=== PATIENT | female | born 1975 | race Caucasian/White ===

== ENCOUNTER 2017-05-20 16:53 | Emergency (ER) | payer MEDICAID ==
[~2017-05-20] VITALS: Ht 154.9 cm; Wt 56.1 kg
[~2017-05-20 16:53] MED LIST: ACET-896 PO; ALB0.5UD IH; ALBU8.5H8 INH; MONT4TAB9 PO; PROP120C2 PO; SULF1TAB49 PO
[2017-05-20 17:44] LABS: CLARITY,URINE CLEAR (Clear); COLOR,URINE STRAW (Yellow); GLUCOSE, URINE NEGATIVE (Neg); KETONES,URINE NEGATIVE (Neg); LEUKOCYTE ESTERASE ,URINE NEGATIVE (Neg); NITRITES, URINE NEGATIVE (Neg); OCCULT BLOOD,URINE MODERATE (Neg); PROTEIN,URINE NEGATIVE (Neg); UROBILINOGEN,URINE 0.2 E.U/dL (0.2-1.0)
[2017-05-20 17:45] LABS: UA COLLECTION TYPE CLN CATCH MIDSTREAM; URINE HCG NEGATIVE (NEG)
[2017-05-20 17:51] LABS: BACTERIA,URINE NONE SEEN /HPF (Neg); MUCUS STRANDS NONE SEEN /LPF (Neg); RBC,URINE 0-2 /HPF (0-2); SQUAMOUS EPITHELIAL CELL,UR FEW /LPF (FEW); WBC,URINE NONE SEEN /HPF (0-4)
[2017-05-20 18:10] LABS: BASOPHILS % (AUTO) 0.3 % (0-1); EOSINOPHILS # (AUTO) 0.3 X10'3 (0-0.9); EOSINOPHILS % (AUTO) 2.6 % (0-6); HEMATOCRIT 42.7 % (35.0-45.0); HEMOGLOBIN 14.3 g/dl (12.0-16.0); LYMPHOCYTES # (AUTO) 1.7 X10'3 (1.1-4.8); LYMPHOCYTES % (AUTO) 16.6 % (21-51); MEAN CORPUSCULAR HEMOGLOBIN 28.1 PG (27.0-31.0); MEAN CORPUSCULAR HGB CONC 33.5 % (33.0-36.5); MEAN CORPUSCULAR VOLUME 83.9 FL (78-98); MEAN PLATELET VOLUME 7.3 FL (7.4-10.4); MONOCYTES # (AUTO) 0.6 X10'3 (0-0.9); MONOCYTES % (AUTO) 6.3 % (2-12); NEUTROPHILS # (AUTO) 7.5 X10'3 (1.8-7.7); NEUTROPHILS % (AUTO) 74.2 % (42-75); PLATELET COUNT 623 X10'3 (140-440); RED BLOOD COUNT 5.09 X10'6 (4.20-5.60); RED CELL DISTRIBUTION WIDTH 13.7 % (11.5-14.5); WHITE BLOOD COUNT 10.1 X10'3 (4.5-11.0)
[2017-05-20 18:15] LABS: INR 1.1 INR; PARTIAL THROMBOPLASTIN TIME 31 SECONDS (22-32); PROTHROMBIN TIME 11.4 SECONDS (9.0-12.0)
[2017-05-20] MEDS ORDERED: normal saline 1000ML IV soln IVB ONE (18:20)
[2017-05-20] MEDS ORDERED: cefazolin 1gm/NS 100mL 100 ML IV ONE (18:20)
[2017-05-20 18:21] LABS: ALANINE AMINOTRANSFERASE 41 U/L (12-78); ALBUMIN 3.8 G/DL (3.4-5.0); ALBUMIN/GLOBULIN RATIO 0.8 (1.1-1.5); ALKALINE PHOSPHATASE 123 IU/L (46-116); ANION GAP 13 (8-16); ASPARTATE AMINO TRANSFERASE 16 U/L (10-37); BILIRUBIN,TOTAL 0.3 MG/DL (0.1-1.0); BLOOD UREA NITROGEN 25 MG/DL (7-18); BUN/CREATININE RATIO 22.9 (6.6-38.0); CALCIUM 9.3 MG/DL (8.5-10.1); CHLORIDE 98 MMOL/L (99-107); CREATININE 1.09 MG/DL (0.40-0.90); GLUCOSE 117 MG/DL (70-104); MAGNESIUM 1.8 MG/DL (1.5-2.4); POTASSIUM 3.9 MMOL/L (3.5-5.1); SODIUM 135 MMOL/L (135-145); TOTAL CARBON DIOXIDE 23.8 MMOL/L (24-32); TOTAL PROTEIN 8.5 G/DL (6.4-8.2); eGFR 55 ML/MIN
[2017-05-20 20:30] VITALS: BP 138/85
== END 2017-05-20 20:31 | disposition home or self-care (01) ==
LOC: ER 16:54
DX: M65.9 Synovitis and tenosynovitis, unspecified (principal); I10 Essential (primary) hypertension
CPT/HCPCS: 36415; 71045; 73140; 80053; 81001; 81025; 83605; 83735; 84145; 85025; 85610; 85730; 87040; 96365; 96366; 99285; A6222; J0690; J7030

== ENCOUNTER 2017-06-06 10:01 | Outpatient (CLI) | payer MEDICAID ==
[2017-06-06 10:36] VITALS: BP 158/97
== END 2017-06-06 10:30 | disposition home or self-care (01) ==
LOC: ORTHO 10:01
PROVIDERS: ATTEND Nurse Practitioner Family
DX: L02.511 Cutaneous abscess of right hand (principal); I10 Essential (primary) hypertension; F14.90 Cocaine use, unspecified, uncomplicated; J45.909 Unspecified asthma, uncomplicated; Z59.0 Homelessness; Z56.0 Unemployment, unspecified; Z60.2 Problems related to living alone
CPT/HCPCS: 99213

== ENCOUNTER 2017-06-13 10:12 | Outpatient (CLI) | payer MEDICAID ==
[2017-06-13 10:12] VITALS: BP 160/97
== END 2017-06-13 11:00 | disposition home or self-care (01) ==
LOC: ORTHO 10:12
PROVIDERS: ATTEND Nurse Practitioner Family
DX: L02.511 Cutaneous abscess of right hand (principal); I10 Essential (primary) hypertension; J45.909 Unspecified asthma, uncomplicated; Z59.0 Homelessness; Z56.0 Unemployment, unspecified
CPT/HCPCS: 99212

== ENCOUNTER 2017-06-21 11:17 | Outpatient (CLI) | payer MEDICAID ==
[~2017-06-21 11:17] MED LIST changes: -SULF1TAB49 PO
[2017-06-21 11:20] VITALS: BP 141/84
== END 2017-06-21 11:45 | disposition home or self-care (01) ==
LOC: ORTHO 11:17
PROVIDERS: ATTEND Nurse Practitioner Family
DX: L02.511 Cutaneous abscess of right hand (principal); I10 Essential (primary) hypertension; J45.909 Unspecified asthma, uncomplicated; Z59.0 Homelessness; Z56.0 Unemployment, unspecified; Z60.2 Problems related to living alone
CPT/HCPCS: 99212

== ENCOUNTER 2017-06-28 09:10 | Day surgery (SDC) | payer MEDICAID ==
[2017-06-28] MEDS ORDERED: LIDOcaine 2% 5ml jelly ONE (10:54)
== END 2017-06-28 11:11 | disposition home or self-care (01) ==
LOC: WOUND CARE 09:10
PROVIDERS: ATTEND Surgery
DX: L98.491 Non-pressure chronic ulcer of skin of other sites limited to breakdown of skin (principal); I10 Essential (primary) hypertension; J45.909 Unspecified asthma, uncomplicated; F14.90 Cocaine use, unspecified, uncomplicated; F15.10 Other stimulant abuse, uncomplicated; Z79.899 Other long term (current) drug therapy
CPT/HCPCS: 11042; A6021; A6206

== ENCOUNTER 2017-07-05 09:02 | Day surgery (SDC) | payer MEDICAID ==
[2017-07-05] MEDS ORDERED: LIDOcaine 2% 5ml jelly ONE (10:09)
== END 2017-07-05 11:09 | disposition home or self-care (01) ==
LOC: WOUND CARE 09:02
PROVIDERS: ATTEND Surgery
DX: L98.491 Non-pressure chronic ulcer of skin of other sites limited to breakdown of skin (principal); I10 Essential (primary) hypertension; J45.909 Unspecified asthma, uncomplicated; F14.90 Cocaine use, unspecified, uncomplicated; F15.10 Other stimulant abuse, uncomplicated; Z79.899 Other long term (current) drug therapy
CPT/HCPCS: 97597; A6021; A6206; A6212

== ENCOUNTER 2017-07-12 10:09 | Day surgery (SDC) | payer MEDICAID ==
[2017-07-12] MEDS ORDERED: LIDOcaine 1%/PF (10mg/ml) 5ml vial ONE (10:39)
== END 2017-07-12 11:10 | disposition home or self-care (01) ==
LOC: WOUND CARE 10:09
PROVIDERS: ATTEND Surgery
DX: L98.492 Non-pressure chronic ulcer of skin of other sites with fat layer exposed (principal); I10 Essential (primary) hypertension; J45.909 Unspecified asthma, uncomplicated; F14.90 Cocaine use, unspecified, uncomplicated; F15.10 Other stimulant abuse, uncomplicated; F17.200 Nicotine dependence, unspecified, uncomplicated; Z79.899 Other long term (current) drug therapy
CPT/HCPCS: 11044; A6021; A6206; A6212; J2001

== ENCOUNTER 2017-07-19 09:02 | Day surgery (SDC) | payer MEDICAID ==
[2017-07-19] MEDS ORDERED: LIDOcaine 2% 5ml jelly ONE (10:18)
== END 2017-07-19 10:46 | disposition home or self-care (01) ==
LOC: WOUND CARE 09:02
PROVIDERS: ATTEND Surgery
DX: L98.492 Non-pressure chronic ulcer of skin of other sites with fat layer exposed (principal); I10 Essential (primary) hypertension; J45.909 Unspecified asthma, uncomplicated; F14.90 Cocaine use, unspecified, uncomplicated; F15.10 Other stimulant abuse, uncomplicated; F17.200 Nicotine dependence, unspecified, uncomplicated; Z79.899 Other long term (current) drug therapy
CPT/HCPCS: 11042; A6021; A6206

== ENCOUNTER 2017-07-26 08:59 | Day surgery (SDC) | payer MEDICAID ==
[2017-07-26] MEDS ORDERED: LIDOcaine 2% 5ml jelly ONE (09:48)
== END 2017-07-26 10:42 | disposition home or self-care (01) ==
LOC: WOUND CARE 08:59
PROVIDERS: ATTEND Surgery
DX: L98.492 Non-pressure chronic ulcer of skin of other sites with fat layer exposed (principal); I10 Essential (primary) hypertension; J45.909 Unspecified asthma, uncomplicated; F14.90 Cocaine use, unspecified, uncomplicated; F15.10 Other stimulant abuse, uncomplicated; F17.200 Nicotine dependence, unspecified, uncomplicated; Z79.899 Other long term (current) drug therapy
CPT/HCPCS: 97597; A6021; A6206